=== PATIENT | male | born 1960 | race Caucasian/White ===

== ENCOUNTER 2019-03-06 14:14 | Emergency (ER) | payer MEDICAID ==
--- NOTE | 2019-03-06 15:01 | Emergency Department Record ---
History of Present Illness - General Chief Complaint: Abdominal Pain Stated Complaint: ROCK Time Seen by Provider: 03/06/19 14:51 Source: Patient Mode of Arrival: Ambulatory Limitations: No limitations - History of Present Illness Initial Comments: Pt to our ED with request for peritoneal tap to drain ascities. Pt is recovering alcoholic with hx of cirrhosis and recent extensive hx of esophageal variceal bleeds treated at [facility] with banding. He states he had a GI bleed February 16 and was treated at [facility] In Hospital for 11 days then di scharged for 2 days. Readmitted and again taken to procedure and 5 varicies were banded. Pt received multiple transfusions. He also has ascities drained at that time. Today he is requesting we drain his abdomen again. He was seen at [facility] yesterday with same request. Labs done at that time are with pt and Hb 10.7. He was referred to [facility] and Dr. Huntley. He is unable to get an appointment. He has no fever, or additional vomiting of blood. He does state he has some dark stool that is "starting to lighten up to brown". Again his request is for removal of fluid from the abdomen. He has no increase in ROCK. Onset/Timin -: Days(s) Associated Symptoms: Nausea - Related Data Home Medications Medication Instructions Recorded Confirmed Last Taken Carvedilol [Coreg] 3.125 mg PO DAILY 03/06/19 03/06/19 03/05/19 Pantoprazole Sodium [Protonix] 40 mg PO DAILY 03/06/19 03/06/19 03/05/19 Allergies Allergy/AdvReac Type Severity Reaction Status Date / Time No Known Allergies Allergy Unverified 10/09/18 15:12 Travel Screening - Travel/Exposure Within Last 30 Days Have you traveled within the last 30 days?: No - Travel/Exposure Within Last Year Have you traveled outside the [place] in the last year?: No - Additonal Travel Details Have you been exposed to anyone with a communicable illness?: No - Travel Symptoms Symptom Screening: None Review of Systems Constitutional: Denies: Chills, Fever, Weakness Eyes: Denies: Eye discharge ENT: Denies: Congestion Respiratory: Denies: Cough Cardiovascular: Denies: Arrhythmia, Chest pain Endocrine: Denies: Fatigue Gastrointestinal: Reports: As per HPI Neurological: Denies: Abnormal gait, Headache, Tingling Psychiatric: Denies: Anxiety Hematological/Lymphatic: Reports: Anemia Past Medical History - SOCIAL HISTORY Smoking Status: Never smoker Alcohol Use: None Alcohol Use Comment: quit 2 weeks ago 02/16/2019 Drug Use: None - RESPIRATORY Hx Respiratory Disorders: No - CARDIOVASCULAR Hx Cardio Disorders: Yes Hx Hypertension: Yes - NEURO Hx Neuro Disorders: No - GI Hx GI Disorders: Yes Hx Hepatitis/Jaundice: Yes (hep) Comment:: esophageal varices - Hx Genitourinary Disorders: No - ENDOCRINE Hx Endocrine Disorders: No - MUSCULOSKELETAL Hx Musculoskeletal Disorders: No - PSYCH Hx Psych Problems: No - HEMATOLOGY/ONCOLOGY Hx Hematology/Oncology Disorders: No Family Medical History Any Significant Family History?: No Physical Exam - General General Appearance: Alert, Oriented x3, Cooperative, No acute distress - Head Head exam: Atraumatic - Eye Eye exam: Normal appearance, PERRL - ENT ENT exam: Mucous membranes moist, Normal external ear exam, Normal orophraynx Nasal Exam: Normal inspection - Neck Neck exam: Normal inspection, Full ROM. negative: Tenderness - Respiratory Respiratory exam: Normal lung sounds bilaterally. negative: Respiratory distress - Cardiovascular Cardiovascular Exam: Regular rate, Normal rhythm, Normal heart sounds Peripheral Pulses: 2+: Radial (R), Radial (L) - GI/Abdominal GI/Abdominal exam: Soft, Normal bowel sounds, Distended. negative: Rebound (+ fluid wave ascities), Tenderness - Extremities Extremities exam: Normal inspection - Back Back exam: Reports: Normal inspection. Denies: Paraspinal tenderness - Neurological Neurological exam: Alert, Normal gait, Oriented X3. negative: Motor sensory deficit - Psychiatric Psychiatric exam: Normal affect, Normal mood - Skin Skin exam: Normal color Course Vital Signs 03/06/19 14:15 Pulse Rate 68 Respiratory 16 Rate Blood Pressure 125/80 Pulse Ox 98 - Reevaluation(s) Reevaluation #1: 03/06/19 16:23 Long talk with patient. He has had an extensive past two weeks spent mostly in [facility] with alcoholic liver disease and bleeding esophageal varicies. He underwent banding on two occasions and multiple blood transfusions. He has had peritoneal tap and 4.5 Liters of fluid taken off. He was seen yesterday at [facility] ED and had labs that we have reviewed. Hb 10.7. He is not vomiting blood and his stool is turning "brownish". He has no abd pain or ROCK today. He is frustrated that he is not able to eat. He was referred to [facility] Dr. Huntley to be seen today but was unable to get there. He is requesting more fluid removal from his abdomen. I have reached out to [facility] and he has an appointment made for 9AM tomorrow [address] Dr. Miller. He is to follow up without fail. I have expressed that i am uncomfortable with the procedure today. He understands and agrees withour plan. If he is worse he is to go to [facility] or [facility] ED. He understand.s Disposition Disposition: Discharge Clinical Impression: Alcoholic cirrhosis of liver with ascites Disposition: Home, Self-Care Condition: (2) Stable Instructions: Cirrhosis (ED) Additional Instructions: Appointment made at [facility] in [place] with Dr. Miller at 9AM tomorrow. WITHOUT FAIL! Forms: Patient Portal Access Time of Disposition: 15:27 Quality - Quality Measures Quality Measures: N/A - Blood Pressure Screening Does Patient Have Any of the Following: No Blood Pressure Classification: Pre-Hypertensive BP Reading Systolic Measurement: 139 Diastolic Measurement: 85 Screening for High Blood Pressure: < Pre-Hypertensive BP, F/U Documented > [G8950] Pre-Hypertensive Follow-up Interventions: Follow-up with rescreen every year.
== END 2019-03-06 15:35 | disposition home or self-care (01) ==
LOC: ER 14:14
DX: K70.31 Alcoholic cirrhosis of liver with ascites (principal); I85.10 Secondary esophageal varices without bleeding
CPT/HCPCS: 99282; 99283

== ENCOUNTER 2019-03-27 16:33 | Emergency (ER) | payer MEDICAID ==
--- NOTE | 2019-03-27 18:03 | Emergency Department Record ---
History of Present Illness - General Chief complaint: Flank Pain Stated complaint: RT KIDNEY PAIN Time Seen by Provider: 03/27/19 17:36 Source: Patient Mode of Arrival: Ambulatory Limitations: No limitations - History of Present Illness Initial comments: The patient is here due to a 2 day hx of intermittent R flank pain. The patient states he has a constant R flank aching with intermittent sharp stabbing pain that radiates around the side to the R groin. He had some nausea earlier but no vomiting, diarrhea, fever, chills, CP, SOB, or ROCK. He states he has no hx of kidney stones but does have an extensive hx of Cirrhosis and gets frequent drainage procedures. The patient has had no rectal bleeding or dark stools recently. MD Complaint: Other Onset/Timin -: Days(s) Location: Right flank, Right inguinal region Radiation: Back, RLQ Severity: Moderate Severity scale (1-10): 7 Quality: Sharp Consistency: Constant Improves with: Rest Worsens with: Movement Reports: Denies other symptoms - Related Data Home Medications Medication Instructions Recorded Confirmed Last Taken Furosemide 40 mg PO QAM 03/27/19 03/27/19 03/27/19 Spironolactone [Aldactone] 25 mg PO QAM 03/27/19 03/27/19 03/27/19 Allergies Allergy/AdvReac Type Severity Reaction Status Date / Time No Known Allergies Allergy no Verified 03/27/19 17:41 allergies Travel Screening - Travel/Exposure Within Last 30 Days Have you traveled within the last 30 days?: No Review of Systems Constitutional: Denies: Chills, Fever Eyes: Denies: Eye discharge ENT: Denies: Congestion Respiratory: Denies: Cough, Dyspnea Past Medical History - SOCIAL HISTORY Smoking Status: Never smoker Alcohol Use: None Drug Use: None - RESPIRATORY Hx Respiratory Disorders: No - CARDIOVASCULAR Hx Cardio Disorders: Yes Hx Hypertension: Yes - NEURO Hx Neuro Disorders: No - GI Hx GI Disorders: Yes Hx Hepatitis/Jaundice: Yes (hep) Comment:: esophageal varices - Hx Genitourinary Disorders: No - ENDOCRINE Hx Endocrine Disorders: No - MUSCULOSKELETAL Hx Musculoskeletal Disorders: No - PSYCH Hx Psych Problems: No - HEMATOLOGY/ONCOLOGY Hx Hematology/Oncology Disorders: No Family Medical History Any Significant Family History?: No Physical Exam - General General Appearance: Alert, Oriented x3, Cooperative, No acute distress - Head Head exam: Atraumatic, Normocephalic, Normal inspection - Eye Eye exam: Normal appearance, PERRL - ENT Throat exam: Normal inspection. negative: Tonsillar erythema, Tonsillar exudate - Neck Neck exam: Normal inspection, Full ROM. negative: Tenderness - Respiratory Respiratory exam: Normal lung sounds bilaterally. negative: Respiratory distress - Cardiovascular Cardiovascular Exam: Regular rate, Normal rhythm, Normal heart sounds - GI/Abdominal GI/Abdominal exam: Soft, Normal bowel sounds, Distended (mildly (chronic)), Tenderness (There is mild RUQ tenderness but no guarding or rebound.). n egative: Rebound, Rigid - Extremities Extremities exam: Normal inspection, Full ROM, Normal capillary refill. negative: Tenderness - Back Back exam: Reports: Normal inspection - Neurological Neurological exam: Alert, Normal gait. negative: Abnormal gait, Motor sensory deficit - Psychiatric Psychiatric exam: negative: Anxious - Skin Skin exam: negative: Rash Course Vital Signs 03/27/19 17:33 Temperature 97.8 F Pulse Rate 72 Respiratory 18 Rate Blood Pressure 144/78 Pulse Ox 93 L - Reevaluation(s) Reevaluation #1: The patient is doing a lot better at this time. He states his pain has resolved and he is resting comfortably. I did discuss the fact we are waiting for the CT report from [facility] and he understands the delay. 03/27/19 19:39 Reevaluation #2: Due to the delay in the CT report the patient's care will be turned over to Dr. Queen for disposition. 03/27/19 19:44 Medical Decision Making - Data Complexity MDM Data: Labs Ordered and/or Reviewed - Lab Data Result diagrams: 03/27/19 17:45 03/27/19 17:45 Disposition Forms: Patient Portal Access Quality - Quality Measures Quality Measures: N/A - Blood Pressure Screening View Details: Yes Does Patient Have Any of the Following: No Blood Pressure Classification: Hypertensive Reading Systolic Measurement: 144 Diastolic Measurement: 78 Screening for High Blood Pressure: < First Hypertensive BP, F/U Documented > [G8950] First Hypertensive Follow-up Interventions: Referral to alternative/primary care provider.
[2019-03-27 18:10] LABS: BASO % 0.4 % (0-6); EOS % 3.8 % (0-6); GRAN % 55.3 % (47-80); HEMATOCRIT 33.4 % (42.0-52.0); HEMOGLOBIN 10.8 gm/dl (14.0-18.0); LYMPH % 33.5 % (16-45); MEAN CELL VOLUME 87.7 fl (81-97); MEAN CORPUSCULAR HEMOGLOBIN 28.3 pg (27-33); MEAN CORPUSCULAR HGB CONC 32.3 g/dl (32-36); PLATELET COUNT 121 K/uL (130-400); RED BLOOD COUNT 3.81 M/uL (4.40-5.70); RED CELL DISTRIBUTION WIDTH 14.4 % (11.5-14.5); URINE APPEARANCE CLEAR; URINE BILIRUBIN SMALL (NEGATIVE); URINE BLOOD NEGATIVE (NEGATIVE); URINE COLOR YELLOW; URINE GLUCOSE (UA) NEGATIVE (NEGATIVE); URINE KETONE TRACE (NEGATIVE); URINE LEUKOCYTE ESTERASE NEGATIVE (NEGATIVE); URINE NITRITE NEGATIVE (NEGATIVE); URINE PROTEIN NEGATIVE (NEGATIVE); WHITE BLOOD COUNT W/O DIFF 5.3 K/uL (4.2-12.2)
[2019-03-27 18:25] LABS: BLOOD UREA NITROGEN 7 mg/dL (6-20); CREATININE 0.9 mg/dL (0.7-1.2); EST GLOMERULAR FILTRATION RATE > 60 mL/min
[2019-03-27 18:26] LABS: LIPASE 47 U/L (13-60); TOTAL PROTEIN 7.6 g/dL (6.6-8.7)
[2019-03-27 18:28] LABS: GLUCOSE,RANDOM 150 mg/dL (74-109)
[2019-03-27 18:30] LABS: ALT/SGPT 40 U/L (<41); AST/SGOT 74 U/L (10.0-50.0); BILIRUBIN,DIRECT 0.4 mg/dL (0-0.3)
[2019-03-27 18:31] LABS: ALKALINE PHOSPHATASE 214 U/L (40-129)
[2019-03-27] MEDS ORDERED: MORPHINE SULFATE 5 MG/ML VIAL IVP ONE (18:44)
[2019-03-27] MEDS ORDERED: ONDANSETRON HCL IV 4 MG/2 ML VIAL IVP ONE (18:44)
--- NOTE | 2019-03-28 13:10 | CT SCAN REPORT ---
EXAM: CT OF THE ABDOMEN AND PELVIS WITHOUT CONTRAST HISTORY: RIGHT FLANK PAIN. TECHNIQUE: Axial CT scan of the abdomen and pelvis was obtained without oral or IV contrast. A preliminary report was provided by [facility]. Comparison: None. FINDINGS: Apparent cholelithiasis. Evaluation for pericholecystic edema limited by extensive ascites, but no definite wall thickening seen. There is at least one calcification within the right kidney consistent with a currently nonobstructing intrarenal calculus, however, no definite hydronephrosis or hydroureter is seen on either side. As such it is somewhat difficult to follow the entire course of both ureters in their nondilated state throughout the retroperitoneum and pelvis, but no definite ureteral calculus seen on either side and no bladder calculus identified. The bladder has a thick walled appearance. This may simply be due to incomplete distention, but can be seen with cystitis as well and clinical correlation is suggested with urinalysis. Evaluation of the bowel and viscera is extremely limited without oral or IV contrast. The liver has finely nodular outline suggesting cirrhosis. No obvious focal hepatic mass evident. Splenomegaly is present presumably related to cirrhosis. Prominent ascites presumably related to cirrhosis. There are probably periesophageal and perisplenic varices present as well. Correlation with any known history of cirrhosis and associated complication is suggested. No definite focal splenic mass evident. No right adrenal mass seen. There does appear to be a left adrenal mass approximately 2.2 cm in size. This has an indeterminate noncontrast CT density of 38. Recommend correlation with prior work-up. No definite splenic mass identified and no definite renal mass seen on either side. There are segments of the colon that have a somewhat thick walled appearance. The stomach also diffusely has a relatively thick walled appearance which may simply be due to incomplete distention although is nonspecific. This is nonspecific although may simply be due to incomplete distention. I believe the appendix is identified as a normal caliber structure containing air with no definite appendicitis evident. Cardiomegaly. No definite free intraperitoneal air identified. There is a small periumbilical hernia containing adipose tissue. Multilevel degenerative disk disease in the lumbar spine and multilevel degenerative disk disease in the lumbar spine and multilevel facet joint arthropathy. IMPRESSION: 1. AT LEAST ONE SMALL CALCIFICATION WITHIN THE RIGHT KIDNEY, BUT NO DEFINITE HYDRONEPHROSIS OR URETERAL CALCULUS ON EITHER SIDE. 2. APPEARANCE LIKELY REPRESENTING CIRRHOSIS. SPLENOMEGALY. PROMINENT ASCITES. PROBABLE ESOPHAGEAL AND SPLENIC VARICES. 3. APPARENT CHOLELITHIASIS. 4. SMALL PERIUMBILICAL HERNIA CONTAINING ASCITES. 5. THICK WALLED APPEARANCE OF THE STOMACH WELL PORTIONS OF THE COLON NONSPECIFIC ALTHOUGH MAY ALL BE DUE TO INCOMPLETE DISTENTION. 6. THICK WALLED APPEARANCE OF THE URINARY BLADDER MAY ALSO BE DUE TO INCOMPLETE DISTENTION, BUT CAN BE SEEN WITH CYSTITIS WELL. 7. INDETERMINATE APPROXIMATELY 2.2 CM LEFT ADRENAL NODULE. RECOMMEND CORRELATION WITH ANY PRIOR WORK-UP. THIS COULD BE FURTHER ASSESSED WITH AN MRI OF THE ADRENAL IF FELT CLINICALLY WARRANTED. JOB NUMBER: [id number] MTDD
== END 2019-03-27 20:37 | disposition home or self-care (01) ==
LOC: ER 16:33
DX: N20.0 Calculus of kidney (principal); R11.0 Nausea; I10 Essential (primary) hypertension
CPT/HCPCS: 99284 ×2; 96374; 96375; 83690; 85025; 80076; 80048; 81003; 74176; J2405

== ENCOUNTER 2019-04-02 14:52 | Emergency (ER) | payer MEDICAID ==
--- NOTE | 2019-04-02 16:34 | Emergency Department Record ---
History of Present Illness - General Chief complaint: Male Urogenital Problem Stated complaint: BLOOD IN URINE,ABD PAIN,KIDNEY STONE Time Seen by Provider: 04/02/19 16:27 Source: Patient, RN notes reviewed Mode of Arrival: Ambulatory - History of Present Illness Initial comments: hematuria and he has a kidney stone 5 mm and he is passing that and history of varicoses of the esophagus with bleeding February 2019 and treated in [place] and he cirrhosis of liver and hep c. Released from hospital March 05 from [place]. @ days ago seen at [facility] and EGD and had two varicoses tied off and scheduled to have pericentesis done at [facility]. Cirrhosis since 1995 and he stopped drinking February 13 2019 Onset/Timin -: Hour(s) Location: Abdomen, Right flank, Left inguinal region Severity scale (1-10): 9 Quality: Aching, Sharp Consistency: Constant Reports: Blood in urine - Related Data Previous Rx's Medication Instructions Recorded Hydrocodone/Acetaminophen [Stephen 1 each PO Q6HR #10 tablet 04/02/19 5-325 Tablet] Allergies Allergy/AdvReac Type Severity Reaction Status Date / Time No Known Allergies Allergy no Unverified 04/02/19 11:34 allergies Travel Screening - Travel/Exposure Within Last 30 Days Have you traveled within the last 30 days?: No - Travel/Exposure Within Last Year Have you traveled outside the [place] in the last year?: No - Additonal Travel Details Have you been exposed to anyone with a communicable illness?: No Review of Systems Reviewed: No additional complaints except as noted below Constitutional: Reports: As per HPI. Denies: Chills, Fever, Malaise, Night sweats, Weakness, Weight change Eyes: Reports: As per HPI. Denies: Eye discharge, Eye pain, Photophobia, Vision change ENT: Reports: As per HPI. Denies: Congestion, Dental pain, Ear pain, Epistaxis, Hearing loss, Throat pain Respiratory: Reports: As per HPI. Denies: Cough, Dyspnea, Hemoptysis, Stridor, Wheezes Cardiovascular: Reports: As per HPI. Denies: Arrhythmia, Chest pain, Dyspnea on exertion, Edema, Murmurs, Orthopnea, Palpitations, Paroxysmal nocturnal dyspnea, Rheumatic Fever, Syncope Endocrine: Reports: As per HPI. Denies: Fatigue, Heat or cold intolerance, Polydipsia, Polyuria Gastrointestinal: Reports: As per HPI. Denies: Abdominal pain, Constipation, Diarrhea, Hematemesis, Hematochezia, Melena, Nausea, Vomiting Genitourinary: Reports: As per HPI, Hematuria. Denies: Dysuria, Frequency, Incontinence, Retention, Testicular pain, Testicular mass, Urgency Musculoskeletal: Reports: As per HPI. Denies: Arthralgia, Back pain, Gout, Joint swelling, Myalgia, Neck pain Skin: Reports: As per HPI. Denies: Bruising, Change in color, Change in hair/nails, Lesions, Pruritus, Rash Neurological: Reports: As per HPI. Denies: Abnormal gait, Confusion, Headache, Numbness, Paresthesias, Seizure, Tingling, Tremors, Vertigo, Weakness Psychiatric: Reports: As per HPI. Denies: Anxiety, Auditory hallucinations, Depression, Homicidal thoughts, Suicidal thoughts, Visual hallucinations Hematological/Lymphatic: Reports: As per HPI. Denies: Anemia, Blood Clots, Easy bleeding, Easy bruising, Swollen glands Past Medical History - SOCIAL HISTORY Smoking Status: Never smoker Alcohol Use: None Drug Use: None - RESPIRATORY Hx Respiratory Disorders: No - CARDIOVASCULAR Hx Cardio Disorders: Yes Hx Hypertension: Yes - NEURO Hx Neuro Disorders: No - GI Hx GI Disorders: Yes Hx Hepatitis/Jaundice: Yes (hep) Comment:: esophageal varices - Hx Genitourinary Disorders: No - ENDOCRINE Hx Endocrine Disorders: No - MUSCULOSKELETAL Hx Musculoskeletal Disorders: No - PSYCH Hx Psych Problems: No - HEMATOLOGY/ONCOLOGY Hx Hematology/Oncology Disorders: No Family Medical History Any Significant Family History?: No Physical Exam - General General Appearance: Alert, Oriented x3, Cooperative, No acute distress - Head Head exam: Normal inspection - Eye Eye exam: Normal appearance, PERRL Pupils: Normal accommodation - ENT ENT exam: Normal exam, Mucous membranes moist, Normal external ear exam, Normal orophraynx, TM's normal bilaterally Ear exam: Normal external inspection. negative: External canal tenderness Nasal Exam: Normal inspection. negative: Discharge, Sinus tenderness Mouth exam: Normal external inspection, Tongue normal Teeth exam: Normal inspection. negative: Dental caries Throat exam: Normal inspection. negative: Tonsillar erythema, Tonsillar exudate - Neck Neck exam: Normal inspection, Full ROM. negative: Tenderness - Respiratory Respiratory exam: Normal lung sounds bilaterally. negative: Respiratory dis tress - Cardiovascular Cardiovascular Exam: Regular rate, Normal rhythm, Normal heart sounds - GI/Abdominal GI/Abdominal exam: Soft, Normal bowel sounds. negative: Tenderness - Rectal Rectal exam: Deferred - exam: Deferred - Extremities Extremities exam: Normal inspection, Full ROM, Normal capillary refill. negative: Tenderness - Back Back exam: Reports: Normal inspection, Full ROM. Denies: Muscle spasm, Rash noted, Tenderness - Neurological Neurological exam: Alert, Normal gait, Oriented X3, Reflexes normal - Psychiatric Psychiatric exam: Normal affect, Normal mood - Skin Skin exam: Dry, Intact, Normal color, Warm Course Vital Signs 04/02/19 14:58 Temperature 98.3 F Pulse Rate 84 Respiratory 20 Rate Blood Pressure 141/100 Pulse Ox 98 - Reevaluation(s) Reevaluation #1: Informed patient to stop using motrin or NSAID or aspirin because of his recent varicose vein bleeding and procedures done. 04/02/19 16:41 Medical Decision Making - Data Complexity MDM Data: Labs Ordered and/or Reviewed (hg 9.8), X-Ray Ordered and/or Reviewed (CT no obstructing kidney stones) - Lab Data Result diagrams: 04/02/19 17:02 04/02/19 17:02 Disposition Clinical Impression: Alcoholic cirrhosis of liver with ascites Hematuria Qualifiers: Hematuria type: gross Qualified Code(s): R31.0 - Gross hematuria Esophageal varices Qualifiers: Esophageal varices type: unspecified type Esophageal varices bleeding: without bleeding Qualified Code(s): I85.00 - Esophageal varices without bleeding Disposition: Home, Self-Care Condition: (2) Stable Additional Instructions: stop motrin and no NSAID, no aspirin follow up with urology Dr Stephens in [place] Prescriptions: Hydrocodone/Acetaminophen [Stephen 5-325 Tablet] 1 each PO Q6HR #10 tablet Forms: Patient Portal Access Time of Disposition: 18:27 Quality - Quality Measures Quality Measures: N/A - Blood Pressure Screening Does Patient Have Any of the Following: No, Active Dx of HTN Blood Pressure Classification: Hypertensive Reading Systolic Measurement: 141 Diastolic Measurement: 100 Screening for High Blood Pressure: Patient Exclusion, Hx of HTN [G9744]
[2019-04-02 16:57] LABS: URINE APPEARANCE CLOUDY; URINE BILIRUBIN NEGATIVE (NEGATIVE); URINE BLOOD LARGE (NEGATIVE); URINE COLOR BROWN; URINE GLUCOSE (UA) NEGATIVE (NEGATIVE); URINE KETONE NEGATIVE (NEGATIVE); URINE LEUKOCYTE ESTERASE NEGATIVE (NEGATIVE); URINE NITRITE NEGATIVE (NEGATIVE)
[2019-04-02 17:08] LABS: ABSOLUTE NEUTROPHIL COUNT 2.55; BASO % 0.2 % (0-6); EOS % 4.1 % (0-6); GRAN % 55.7 % (47-80); HEMATOCRIT 30.6 % (42.0-52.0); HEMOGLOBIN 9.8 gm/dl (14.0-18.0); MEAN CELL VOLUME 87.9 fl (81-97); MEAN CORPUSCULAR HEMOGLOBIN 28.1 pg (27-33); MEAN PLATELET VOLUME 11.7 fl (7.4-10.4); PLATELET COUNT 86 K/uL (130-400); RED BLOOD COUNT 3.48 M/uL (4.40-5.70); RED CELL DISTRIBUTION WIDTH 14.5 % (11.5-14.5); WHITE BLOOD COUNT W/O DIFF 4.6 K/uL (4.2-12.2)
[2019-04-02 17:09] LABS: URINE BACTERIA NONE SEEN; URINE EPITHELIAL CELLS 0 - 2 (FEW); URINE WBC NONE SEEN (0-2/hpf)
[2019-04-02 17:30] LABS: BLOOD UREA NITROGEN 8 mg/dL (6-20); CREATININE 0.7 mg/dL (0.7-1.2); EST GLOMERULAR FILTRATION RATE > 60 mL/min; TOTAL PROTEIN 7.3 g/dL (6.6-8.7)
[2019-04-02 17:32] LABS: GLUCOSE,RANDOM 141 mg/dL (74-109)
[2019-04-02 17:33] LABS: INR 1.3; PROTHROMBIN TIME (PATIENT) 13.4 SECONDS (9.5-12.1)
[2019-04-02 17:35] LABS: ALBUMIN 2.9 g/dL (4.0-5.0); ALKALINE PHOSPHATASE 202 U/L (40-129); ALT/SGPT 35 U/L (<41); AST/SGOT 69 U/L (10.0-50.0); BILIRUBIN,DIRECT 0.4 mg/dL (0-0.3)
--- NOTE | 2019-04-03 21:46 | CT SCAN REPORT ---
EXAM: CT SCAN ABDOMEN/PELVIS WO CONTRAST HISTORY: GROSS HEMATURIA. TECHNIQUE: CT abdomen and pelvis performed without intravenous or oral contrast. COMPARISON: CT abdomen and pelvis 03/27/2019. FINDINGS: The lung bases are unremarkable. There is a small hiatal hernia. There is a large amount of ascites present. The liver has a lobulated appearance and the spleen is enlarged. Findings are likely related to cirrhosis. No focal hepatic or splenic mass. No pancreatic mass or inflammatory change. The bile ducts are not dilated. There are calcified gallstones within the gallbladder. A 2.2 cm left adrenal mass is similar to the previous study. Right adrenal gland unremarkable. There is a 3 mm nonobstructing calculus in the mid right kidney. No other renal calculi. No hydronephrosis. No ureteral calculus. Possible mass protruding from the anterior superior aspect of the left kidney measuring 1.3 cm in size. This cannot be assessed without contrast. Kidneys otherwise are unremarkable. There is no aortic aneurysm. No periaortic mass or adenopathy. There is a ventral wall hernia just above the umbilicus in the midline, which contains a small amount of ascites. There are no dilated bowel loops. There is no pelvic mass, abscess, or adenopathy. No free air identified. The wall of the urinary bladder appears diffusely thickened. Sclerotic density in the inferior aspect of T11, 1.5 cm in size. Etiology uncertain. This is similar to the previous study. IMPRESSION: 1. NO CHANGE FROM THE RECENT PREVIOUS EXAMINATION. 2. A 3 MM NONOBSTRUCTING RIGHT RENAL CALCULUS. 3. LARGE AMOUNT OF ASCITES, LOBULATED LIVER AND ENLARGED SPLEEN, LIKELY DUE TO CIRRHOSIS. 4. NOT MENTIONED ABOVE, THERE ARE PROBABLY ESOPHAGEAL AND PARASPLENIC VARICES. 5. CHOLELITHIASIS. 6. SMALL VENTRAL WALL HERNIA CONTAINING ASCITES. 7. SOMEWHAT THICK-WALLED APPEARANCE OF THE URINARY BLADDER MAY JUST BE DUE TO INCOMPLETE DISTENTION. CYSTOSCOPY MAY BE OF BENEFIT FOR FURTHER ASSESSMENT TO EXCLUDE BLADDER ABNORMALITY. 8. A 2.2 CM LEFT ADRENAL NODULE, UNCHANGED. 9. SMALL HIATAL HERNIA. 10. AREA OF SCLEROTIC CHANGE IN THE T11 VERTEBRAL BODY OF UNCERTAIN ETIOLOGY, POSSIBLY A BONE ISLAND. JOB NUMBER: [id number] MTDD
== END 2019-04-02 18:50 | disposition home or self-care (01) ==
LOC: ER 14:52
DX: K70.31 Alcoholic cirrhosis of liver with ascites (principal); I85.00 Esophageal varices without bleeding; R31.0 Gross hematuria; I10 Essential (primary) hypertension; Z87.442 Personal history of urinary calculi
CPT/HCPCS: 74176; 80048; 80076; 81001; 85025; 85610; 99284